=== PATIENT | female | born 1950 | race Caucasian/White ===

== ENCOUNTER 2023-02-14 09:04 | Outpatient (AMB) | payer MEDICARE, SELFPAY ==
--- NOTE | 2023-02-14 09:05 | AM.OFFWIN_ITS ---
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 Patient is complaining of right ear pain with fullness. She has not been able to hear for the past few days from the right ear. In addition, patient is complaining of constant ringing in both ears. This problem has been there for many months. It is recently gotten worse. No associated dizziness, nausea or vomiting. PFSH Social History Patient Tobacco Use Status: Never used Tobacco Physical Exam Vital Signs: Last Vital Signs Temp 98.3 F 02/14/23 09:09 Pulse 74 02/14/23 09:09 BP 112/72 02/14/23 09:09 Pulse Ox 95 02/14/23 09:09 BMI result Body Mass Index 20.3 Const General: cooperative and healthy appearing Nutritional Appearance: well nourished Orientation/consciousness: patient oriented x3 Limitations: no limitations HEENT Other: Right ear canal: Wax present. No mastoid tenderness. Head: Yes normal to inspection Eyes General: appearance normal, both eyes and all related structures Neck Neck: Yes normal visual inspection Chest Chest palpation & inspection: normal palpation of entire chest wall Resp Effort & Inspection: normal respiratory effort Neuro General: patient oriented x3 Office Procedures Cerumen Removal From which ear canal was the cerumen removed: bilateral Removal: irrigation and otoscope w/curette [id number] Wax Removal by Spoon/Curette Assessment & Plan Assessment & Plan (1) Impacted cerumen of both ears: Code(s): H61.23 - Impacted cerumen, bilateral Plan: Patient tolerated the procedure well. (2) Tinnitus, bilateral: Code(s): H93.13 - Tinnitus, bilateral Plan: This is going to require additional workup. An audiology exam and an ENT referral is needed. Orders: Orders AMB Cerumen Removal Today H61.23 - Impacted cerumen, bilateral Coding Level of Care Code Est Pt Level 4 (88482) Diagnoses Impacted cerumen of both ears H61.23 Tinnitus, bilateral H93.13 CPT Codes Office Procedure - CPT: 66121-Otc Wax Removal by Spoon/Curette ([id number])
[2023-02-14 09:09] VITALS: BP 112/72; PULSE 74; TEMP 36.8; O2SAT 95; BMI 20.3
== END 2023-02-14 09:54 | disposition home or self-care (01) ==
PROVIDERS: Visit Provider Internal Medicine
DX: H61.23 Impacted cerumen, bilateral (principal); H93.13 Tinnitus, bilateral
CPT/HCPCS: 69210; 99214

== ENCOUNTER 2023-05-31 09:45 | Outpatient (AMB) | payer MEDICARE, SELFPAY ==
[2023-05-31 12:46] VITALS: BP 112/60; PULSE 86; TEMP 36.6; O2SAT 98; BMI 20.7
--- NOTE | 2023-05-31 12:46 | MHC.OFFWIV ---
Intake Vital Signs 05/31/23 12:46 Height 5 ft 2 in Weight 113 lb BMI 20.7 BP 112/60 Blood Pressure Location Rt brachial Position Sitting Pulse 86 Pulse Source Pulse Oximeter Temp 97.9 F Temp Source Temporal Artery Scan Pulse Oximetry (%) 98 Oxygen Delivery Method Room Air Intake Visit Reasons: EST/stomach bug ([phone]) Intake Note: pt is here today for stomach bug started tuesday Patient Tobacco Use Status: Never used Tobacco Allergies No Known Allergies Allergy (Verified 05/31/23 12:46) Do you need a note to return to daycare/school/sports/work: No HPI HPI Comments History of Present Illness Details Patient is a 72-year-old female in today for a sick visit. She has a past medical history significant for COPD. She states that over the past several days she has developed diarrhea, epigastric pain, and excessive gas. She states that she has used Gas-X which has given some relief. The diarrhea subsided 1 day prior to visit. Chief complaint today is epigastric pain that comes and goes. Patient denies constipation, blood in stool, dizziness, chest pain, shortness a breath. PFSH Social History Patient Tobacco Use Status: Never used Tobacco Review of Systems Const Details: Constitutional : No Weight loss, No Fever, No Chills, No Fatigue, No Malaise Cardiovascular : No Chest Pain, No SOB, No Dyspnea on Exertion, No Orthopnea, No Edema, No Palpitations Respiratory : No Cough, No Sputum, No Wheezing Gastrointestinal : No Nausea, No Vomiting, Admits some Diarrhea, No Constipation, Admits intermittent epigastric pain, No Hematochezia, No Melena Genitourinary : No Dysuria, No Urinary Frequency, No Hematuria, Musculoskeletal : No joint pain, No Myalgias, No Joint Swelling Skin : No Skin Lesions, No rash Neuro : No Weakness, No Numbness, No Dizziness, No Headache Psych : No Anxiety/Panic, No Depression Heme/Lymph: No Bruising, No Bleeding,No Lymphadenopathy Endocrine : No Polyuria, No Polydipsia All other systems reviewed and are negative Physical Exam Vital Signs: Last Vital Signs Temp 97.9 F 05/31/23 12:46 Pulse 86 05/31/23 12:46 BP 112/60 05/31/23 12:46 Pulse Ox 98 05/31/23 12:46 Oxygen Delivery Method Room Air 05/31/23 12:46 BMI result Body Mass Index 20.7 Vital signs reviewed are stable Const Other: Appearance: Alert.? Oriented X3.? No acute distress.? Eyes: Pupils equal, round and reactive to light.? ENT: Pharynx normal.? Neck: Normal inspection.? Neck supple.? CVS: Normal heart rate and rhythm.? Pulses normal.? Respiratory: No respiratory distress.? Breath sounds normal.? Abdomen: Soft Pain on palpation to epigastric area. Skin: Skin warm and dry.? Normal skin color.? Normal skin turgor.? Neuro: Oriented X 3.? No motor deficit.? No sensory deficit. CN 2-12 intact Office Procedures EKG [id number], Complete Assessment & Plan Assessment & Plan (1) Acid reflux: Comment: Patient likely has acid reflux. Patient has been prescribed omeprazole to be taken as directed. She has been educated on foods to avoid. Been educated to not eat 3 hours before due bedtime. Has been educated drink plenty of water and that she can use Tums intermittently. Patient is agreeable to this plan. Code(s): K21.9 - Gastro-esophageal reflux disease without esophagitis Qualifiers: Esophagitis presence: esophagitis presence not specified Qualified Code(s): K21.9 - Gastro-esophageal reflux disease without esophagitis Plan: Patient has been educated on signs of worsening symptoms and when to report back to the walk-in clinic or when to report to the emergency room. Patient is agreeable to this plan Plan Take your medications as prescribed. If you were prescribed antibiotics today, it is important that you take your medication to their entirety, do not skip any doses, do not finish them early. Follow-up with your primary care provider this week. Return to the emergency department with new or worsening symptoms. Such as fevers, chills, chest pain, shortness of breath, nausea, vomiting, dizziness, headache, vision changes, lethargy In case of emergency call 911 Orders: Orders Comprehensive Met. Panel Today R19.7 - Diarrhea, unspecified AMB EKG-In Office Today R10.13 - Epigastric pain Complete Blood Count Auto Diff Today R19.7 - Diarrhea, unspecified Medications: New omeprazole 20 mg PO DAILY 30 caps 0RF Coding Level of Care Code Est Pt Level 3 (28204) Diagnoses Gastroesophageal reflux disease, unspecified whether esophagitis present K21.9 Esophagitis presence: esophagitis presence not specified CPT Codes EKG - CPT: 25230-Riaghpjtkgugabwfh, Complete ([id number]) Time Spent (min) 30
== END 2023-05-31 14:31 | disposition home or self-care (01) ==
PROVIDERS: Visit Provider Nurse Practitioner Primary Care
DX: K21.9 Gastro-esophageal reflux disease without esophagitis (principal)
CPT/HCPCS: 93000; 99213

== ENCOUNTER 2023-05-31 14:09 | Outpatient (REF) | payer MEDICARE, SELFPAY ==
[2023-05-31 16:10] LABS: MANUAL DIFF FLAG NO
[2023-05-31 16:18] LABS: Basophils Absolute Auto 0.1 X10*3/uL (0.0-0.2); Basophils Percent Auto 0.6 % (0-2); Eosinophils Absolute Auto 0.1 X10*3/uL (0.0-0.4); Eosinophils Percent Auto 1.2 % (0-4); Hematocrit 43.4 % (37.0-47.0); Hemoglobin 14.4 g/dl (12.0-16.0); Imm Gran Abs Auto 0.03 X10*3/uL (0.00-0.03); Imm Gran Pct Auto 0.3 % (0.0-0.4); Lymphocytes Absolute Auto 1.9 X10*3/uL (1.2-4.9); Lymphocytes Percent Auto 15.6 % (20-40); Mean Corpuscular HGB Conc 33.2 g/dl (31.0-35.0); Mean Corpuscular Hemoglobin 30.8 pg (27.0-33.0); Mean Corpuscular Volume 92.7 fL (80.0-98.0); Mean Platelet Volume 10.4 fL (9.4-12.3); Monocytes Absolute Auto 1.2 X10*3/uL (0.1-1.2); Neutrophils Absolute Auto 8.6 x10*3/uL (2.0-8.3); Neutrophils Percent Auto 72.3 % (45-73); Platelet Count 329 X10*3/uL (160-400); Red Blood Count 4.68 X10*6/uL (4.20-5.50); Red Cell Distribution Width 12.9 % (11.0-16.0); White Blood Count 11.9 X10*3/uL (4.8-10.8)
[2023-05-31 16:27] LABS: Alanine Aminotransferase 14 U/L (0-31); Alkaline Phosphatase 64 U/L (39-117); Anion Gap 13 (12-20); Aspartate Amino Transferase 21 U/L (5-31); Bilirubin Total 0.2 mg/dL (0.0-1.0); Blood Urea Nitrogen 15 mg/dL (9-16); Calcium 9.7 mg/dL (8.4-10.2); Carbon Dioxide 29 mmol/L (22-29); Chloride 103 mmol/L (96-108); Estimated Glomerular Filt Rate > 60; Glucose Random 94 mg/dL (60-115); Potassium 4.7 mmol/L (3.3-5.1); Sodium 140 mmol/L (135-145); Total Protein 7.1 g/dL (6.5-8.0)
== END 2023-05-31 14:10 | disposition home or self-care (01) ==
LOC: HO.HMGCLDS 14:09
PROVIDERS: PCP Internal Medicine; Visit Provider Nurse Practitioner Primary Care
DX: R19.7 Diarrhea, unspecified (principal)
CPT/HCPCS: 36415; 80053; 85025